=== PATIENT | male | born 1990 | race Two or more races ===

== ENCOUNTER 2023-12-31 21:59 | Inpatient (IN) | payer MEDICAID ==
[~2023-12-31] VITALS: Ht 175.3 cm; Wt 68.5 kg
[2023-12-31 23:01] LABS: BASOPHILS % (AUTO) 0.4 % (0.0-2.0); EOSINOPHILS % (AUTO) 1.3 % (1.0-6.0); HEMATOCRIT 37.4 % (41-53); HEMOGLOBIN 12.6 g/dL (13.5-17.5); LYMPHOCYTES # (AUTO) 1.5 K/uL (1.0-4.8); LYMPHOCYTES % (AUTO) 14.8 % (22.0-44.0); MEAN CORPUSCULAR HEMOGLOBIN 31.3 pg (26.0-34.0); MEAN CORPUSCULAR HGB CONC 33.7 G/dL (31.0-37.0); MEAN CORPUSCULAR VOLUME 93 fL (80-100); MONOCYTES # (AUTO) 0.9 K/uL (0.1-1.0); MONOCYTES % (AUTO) 8.4 % (2.0-9.0); NEUTROPHILS # (AUTO) 7.8 K/uL (1.8-7.7); NEUTROPHILS % (AUTO) 75.1 % (40.0-70.0); PLATELET COUNT (AUTO) 233 K/uL (150-450); RED BLOOD CELL COUNT(AUTO) 4.03 MIL/uL (4.50-5.90); RED CELL DISTRIBUTION WIDTH 12.6 % (11.5-14.5); WHITE BLOOD COUNT (AUTO) 10.4 K/uL (4.5-11.0)
[2023-12-31 23:09] LABS: ANION GAP 7 mmol/L (8-16); CALCIUM, TOTAL 8.6 mg/dL (8.8-10.5); CARBON DIOXIDE 28 mmol/L (22-29); CHLORIDE 106 mmol/L (98-107); CREATININE 0.73 mg/dL (0.60-1.30); GLOMERULAR FILTR. RATE CALC > 60 mL/min (>60); GLUCOSE,RANDOM 114 mg/dL (70-110); POTASSIUM 3.9 mmol/L (3.5-5.1); SODIUM SERUM 141 mmol/L (136-145); UREA NITROGEN, BLOOD 18 mg/dL (7-18)
[2023-12-31 23:11] LABS: ALCOHOL, BLOOD (SERUM) < 3 mg/dL (0-10)
[2023-12-31 23:15] LABS: ALANINE AMINOTRANSFERASE 53 U/L (12-78); ALBUMIN 3.3 g/dL (3.4-5.0); ALKALINE PHOSPHATASE 73 U/L (46-116); ASPARTATE AMINOTRANSFERASE 37 U/L (15-37); BILIRUBIN,TOTAL 1.5 mg/dL (0.1-1.0); TOTAL PROTEIN, SERUM 6.4 g/dL (6.4-8.2)
[2024-01-01 02:39] LABS: PH,URINE DRUG SCREEN 7.5 (5.0-8.0)
[2024-01-01 02:47] LABS: ALCOHOL, URINE DRUG SCREEN NEGATIVE (NEGATIVE); AMPHET/METH SCREEN,URINE POSITIVE (NEGATIVE); BARBITURATE SCREEN, URINE NEGATIVE (NEGATIVE); BENZODIAZEPINES SCREEN,URINE NEGATIVE (NEGATIVE); CANNABINOID SCREEN,URINE POSITIVE (NEGATIVE); COCAINE SCREEN,URINE NEGATIVE (NEGATIVE); METHADONE SCREEN, URINE NEGATIVE (NEGATIVE); OPIATE SCREEN,URINE NEGATIVE (NEGATIVE); PHENCYCLIDINE SCREEN,URINE NEGATIVE (NEGATIVE)
[2024-01-01 06:18] LABS: COVID AG,FIA SOURCE NASAL SWAB
[2024-01-01 06:41] LABS: SARS-COV2 (COVID) ANTIGEN,FIA Negative (Negative)
[2024-01-01] MEDS ORDERED: ZOLPIDEM TARTRATE 10 MG TABLET PO PRN (08:45)
[2024-01-01] MEDS ORDERED: HALOPERIDOL 5 MG TABLET PO PRN (08:45)
[2024-01-01] MEDS ORDERED: CloNIDine HCL 0.1 MG TABLET PO PRN (09:45)
[2024-01-01] MEDS ORDERED: DOCUSATE SODIUM 100 MG CAPSULE PO PRN (09:45)
[2024-01-01] MEDS ORDERED: NICOTINE 14 MG/24 HOUR PATCH TD PRN (09:45)
[2024-01-01] MEDS ORDERED: GuaiFENesin/D-METHORPHAN [SUGAR-FREE] 200-20MG/10 ML SYRUP UDCUP PO PRN (09:45)
[2024-01-01] MEDS ORDERED: ACETAMINOPHEN 325 MG TABLET PO PRN (09:45)
[2024-01-01] MEDS ORDERED: ONDANSETRON HCL 4 MG TABLET PO PRN (09:45)
[2024-01-01] MEDS ORDERED: IBUPROFEN 400 MG TABLET PO PRN (09:45)
[2024-01-01] MEDS ORDERED: MAG HYDROX/ALUMINUM HYD/SIMETH ES 30 ML SUSPENSION UDCUP PO PRN (09:45)
[2024-01-01] MEDS ORDERED: ALBUTEROL SULFATE HFA 90 MCG/PUFF 8 GM INHALER IH PRN (09:45)
[2024-01-01] MEDS ORDERED: MAGNESIUM HYDROXIDE SUSPENSION 30 ML UDCUP PO PRN (09:45)
[2024-01-01] MEDS ORDERED: LOPERAMIDE HCL 2 MG CAPSULE PO PRN (09:45)
[2024-01-01 10:15] VITALS: BP 139/85; PULSE 109; RESP 18; TEMP 98.4; O2SAT 98
[2024-01-01] MEDS ORDERED: PETROLATUM,WHITE 28 GM JELLY TP PRN (19:00)
[2024-01-01] MEDS: PETROLATUM,WHITE 28 GM JELLY TP PRN (20:01)
[2024-01-01 22:00] VITALS: BP 117/55; PULSE 104; RESP 18; TEMP 98; O2SAT 98
[2024-01-02] MEDS ORDERED: PETROLATUM,WHITE 28 GM JELLY TP PRN (06:15)
[2024-01-02] MEDS ORDERED: MAG HYDROX/ALUMINUM HYD/SIMETH ES 30 ML SUSPENSION UDCUP PO PRN (06:15)
[2024-01-02] MEDS ORDERED: MAGNESIUM HYDROXIDE SUSPENSION 30 ML UDCUP PO PRN (06:15)
[2024-01-02] MEDS ORDERED: ACETAMINOPHEN 325 MG TABLET PO PRN (06:15)
[2024-01-02] MEDS ORDERED: ALBUTEROL SULFATE HFA 90 MCG/PUFF 8 GM INHALER IH PRN (06:15)
[2024-01-02] MEDS ORDERED: GuaiFENesin/D-METHORPHAN [SUGAR-FREE] 200-20MG/10 ML SYRUP UDCUP PO PRN (06:15)
[2024-01-02] MEDS ORDERED: ONDANSETRON HCL 4 MG TABLET PO PRN (06:15)
[2024-01-02] MEDS ORDERED: LOPERAMIDE HCL 2 MG CAPSULE PO PRN (06:15)
[2024-01-02] MEDS ORDERED: DOCUSATE SODIUM 100 MG CAPSULE PO PRN (06:15)
[2024-01-02] MEDS ORDERED: NICOTINE 14 MG/24 HOUR PATCH TD PRN (06:15)
[2024-01-02] MEDS ORDERED: CloNIDine HCL 0.1 MG TABLET PO PRN (06:15)
[2024-01-02] MEDS ORDERED: IBUPROFEN 400 MG TABLET PO PRN (06:15)
[2024-01-02 09:00] VITALS: BP 120/76; PULSE 96; RESP 18; TEMP 97.3; O2SAT 98
[2024-01-02] MEDS: DIVALPROEX SODIUM 500 MG DR TABLET PO SCH (09:00)
[2024-01-02 12:18] LABS: CHOL/HDL RATIO 2.1 (4.2-7.3); FREE T4 (FREE THYROXINE) 1.06 ng/dL (0.76-1.46); T4 (THYROXINE) 7.9 mcg/dL (4.7-13.3); THYROID STIMULATING HORMONE 1.65 uIU/mL (0.36-3.74)
[2024-01-02 21:07] VITALS: BP 108/92; PULSE 105; TEMP 97.5; O2SAT 99
[2024-01-02] MEDS: OLANZapine 7.5 MG TABLET PO SCH (21:12)
[2024-01-02] MEDS: LITHIUM CARBONATE 600 MG CAPSULE PO SCH (21:12)
[2024-01-02] MEDS: TraZODone HCL 100 MG TABLET PO SCH (21:13)
[2024-01-03 08:42] VITALS: BP 102/59; PULSE 89; RESP 17; TEMP 97; O2SAT 97
[2024-01-03 21:32] VITALS: BP 102/59; PULSE 89; RESP 17; TEMP 97; O2SAT 97
[2024-01-04 04:06] LABS: TREPONEMA PALLIDUM AB -TPPA Reactive (Non Reactive)
[2024-01-04] MEDS: PNEUMOCOCCAL VACCINE POLYVALENT 0.5 ML SYRINGE [PPSV23] IM. ONE (08:52)
[2024-01-04 21:57] VITALS: BP 115/73; PULSE 109; RESP 18; TEMP 98.5; O2SAT 95
[2024-01-05 13:46] VITALS: RESP 18
[2024-01-05 21:00] VITALS: BP 114/67; PULSE 91; RESP 18; TEMP 97.2; O2SAT 98
[2024-01-06] MEDS: LORazepam 2 MG TABLET PO PRN (00:08)
[2024-01-06 08:28] VITALS: BP 100/66; PULSE 90; RESP 15; TEMP 98.9; O2SAT 100
[2024-01-06 20:50] VITALS: BP 119/81; PULSE 91; RESP 17; TEMP 98.3; O2SAT 100
[2024-01-07 08:34] LABS: LITHIUM < 0.20 mmol/L (0.60-1.20)
[2024-01-07 08:39] LABS: CHOL/HDL RATIO 2.8 (4.2-7.3); CHOLESTEROL 134 mg/dL (131-200); HDL CHOLESTEROL 48 mg/dL (40-60); LDL CHOL (CALC.) 81 mg/dL (0-130); THYROID STIMULATING HORMONE 2.42 uIU/mL (0.36-3.74); TRIGLYCERIDES 27 mg/dL (15-150); VALPROIC ACID 17 mcg/mL (50-100)
[2024-01-07 08:56] LABS: HEMOGLOBIN A1C 5.2 % (3.8-5.6)
[2024-01-07 08:57] VITALS: BP 98/63; PULSE 90; RESP 18; TEMP 97.5; O2SAT 97
[2024-01-07 20:40] VITALS: BP 124/69; PULSE 98; RESP 18; TEMP 97.9; O2SAT 96
[2024-01-08 09:17] VITALS: BP 100/64; PULSE 90; RESP 17; TEMP 97.7; O2SAT 96
[2024-01-08 20:23] VITALS: BP 108/70; PULSE 97; RESP 17; TEMP 98.4; O2SAT 99
[2024-01-09] MEDS: BICTEGRAV/EMTRICIT/TENOFOV ALA 50-200-25 MG TABLET PO SCH (21:31)
[2024-01-09 21:38] VITALS: BP 115/67; PULSE 97; RESP 17; TEMP 98.3; O2SAT 99
[2024-01-10 08:52] VITALS: BP 107/68; PULSE 97; RESP 16; TEMP 98.1; O2SAT 97
[2024-01-10] MEDS ORDERED: FLUTICASONE PROPIONATE 50 MCG/SPRAY 16 GM NASAL SPRAY NASAL PRN (20:00)
[2024-01-10 20:35] VITALS: BP 119/81; PULSE 92; RESP 17; TEMP 98.2; O2SAT 99
[2024-01-11 08:10] VITALS: RESP 16
[2024-01-11 20:46] VITALS: BP 112/69; PULSE 98; RESP 18; TEMP 98.1; O2SAT 99
[2024-01-12 14:27] VITALS: BP 114/71; PULSE 89; RESP 18; TEMP 97.3; O2SAT 98
[2024-01-12 17:49] LABS: APPEARANCE,URINE CLEAR (CLEAR); BILIRUBIN,URINE NEGATIVE (NEGATIVE); COLOR,URINE LIGHT YELLOW (YELLOW); GLUCOSE, URINE (UA) NEGATIVE (NEGATIVE); KETONES,URINE TRACE mg/dL (NEGATIVE); LEUKOCYTE ESTERASE ,URINE NEGATIVE (NEGATIVE); NITRATE,URINE NEGATIVE (NEGATIVE); OCCULT BLOOD,URINE NEGATIVE (NEGATIVE); PH,URINE 6.5 (5.0-8.0); PROTEIN,URINE NEGATIVE (NEGATIVE); SPECIFIC GRAVITIY, URINE 1.018 (1.003-1.030); UROBILINOGEN,URINE <=1.0 mg/dL (<=1.0)
[2024-01-12 20:52] VITALS: BP 111/73; PULSE 101; RESP 16; TEMP 98; O2SAT 97
[2024-01-13 10:52] VITALS: BP 112/67; PULSE 92; RESP 18; TEMP 97.9; O2SAT 97
[2024-01-13 20:52] VITALS: BP 113/68; PULSE 98; RESP 17; TEMP 98.3; O2SAT 98
[2024-01-14 08:30] VITALS: BP 96/61; PULSE 86; RESP 18; TEMP 97.7; O2SAT 96
[2024-01-14 20:43] VITALS: BP 106/70; PULSE 93; RESP 16; TEMP 98.5; O2SAT 96
[2024-01-15 09:12] VITALS: BP 91/60; PULSE 83; RESP 17; TEMP 97.7; O2SAT 97
[2024-01-15 20:27] VITALS: BP 109/76; PULSE 89; RESP 17; TEMP 98.3; O2SAT 98
[2024-01-16 09:04] VITALS: BP 122/72; PULSE 90; RESP 18; TEMP 97.8; O2SAT 98
[2024-01-16] MEDS ORDERED: TRAZ-257 PO ×2 (12:06→12:25)
[2024-01-16] MEDS ORDERED: OLAN7.5T22 PO ×2 (12:06→12:25)
[2024-01-16] MEDS ORDERED: LITH600C5 PO (12:07)
[2024-01-16] MEDS ORDERED: DIVA-112 PO ×2 (12:08→12:25)
[2024-01-16] MEDS ORDERED: LITH600C PO (12:25)
[2024-01-16] MEDS ORDERED: BICT1TAB PO (12:34)
== END 2024-01-16 12:53 | disposition home or self-care (01) | DRG 753 ==
LOC: EMS 21:59 → B2S 01-01 08:10
PROVIDERS: ADMIT Psychiatry & Neurology Child & Adolescent Psychiatry; ATTEND Psychiatry & Neurology Child & Adolescent Psychiatry
PROC: GZHZZZZ Group Psychotherapy (ICD-10-PCS; principal; 2024-01-03)
DX: F31.5 Bipolar disorder, current episode depressed, severe, with psychotic features (principal); D64.9 Anemia, unspecified; E80.6 Other disorders of bilirubin metabolism; F15.10 Other stimulant abuse, uncomplicated; R73.9 Hyperglycemia, unspecified; Z20.822 Contact with and (suspected) exposure to COVID-19
CPT/HCPCS: 80053; 80061; 80164; 80178; 80307; 81003; 83036; 84436; 84439; 84443; 85025; 86592; 86593; 86780; 99285; G0480; Q9967

== ENCOUNTER 2024-02-07 21:03 | Inpatient (IN) | payer MEDICAID ==
[~2024-02-07] VITALS: Ht 175.3 cm; Wt 65.8 kg
[~2024-02-07 21:03] MED LIST: BICT1TAB PO; DIVA-112 PO; LITH600C PO; LITH600C5 PO; OLAN7.5T22 PO; TRAZ-257 PO
[2024-02-07 21:35] LABS: GLUCOMETER DEV NAME(LOC) POC.BV; POC SARS-COV2 AG, FIA NEGATIVE (NEGATIVE)
[2024-02-07 22:42] VITALS: BP 110/64; PULSE 103; RESP 16; TEMP 97.5; O2SAT 99
[2024-02-08] MEDS ORDERED: ACETAMINOPHEN 325 MG TABLET PO PRN (07:00)
[2024-02-08] MEDS ORDERED: ALBUTEROL SULFATE HFA 90 MCG/PUFF 8 GM INHALER IH PRN (07:00)
[2024-02-08] MEDS ORDERED: DOCUSATE SODIUM 100 MG CAPSULE PO PRN (07:00)
[2024-02-08] MEDS ORDERED: LOPERAMIDE HCL 2 MG CAPSULE PO PRN (07:00)
[2024-02-08] MEDS ORDERED: ONDANSETRON HCL 4 MG TABLET PO PRN (07:00)
[2024-02-08] MEDS ORDERED: CloNIDine HCL 0.1 MG TABLET PO PRN (07:00)
[2024-02-08] MEDS ORDERED: IBUPROFEN 400 MG TABLET PO PRN (07:00)
[2024-02-08] MEDS ORDERED: MAG HYDROX/ALUMINUM HYD/SIMETH ES 30 ML SUSPENSION UDCUP PO PRN (07:00)
[2024-02-08] MEDS ORDERED: PETROLATUM,WHITE 28 GM JELLY TP PRN (07:00)
[2024-02-08] MEDS ORDERED: NICOTINE POLACRILEX 2 MG LOZENGE PO PRN (07:00)
[2024-02-08] MEDS ORDERED: MAGNESIUM HYDROXIDE SUSPENSION 30 ML UDCUP PO PRN (07:00)
[2024-02-08] MEDS ORDERED: GuaiFENesin/D-METHORPHAN [SUGAR-FREE] 200-20MG/10 ML SYRUP UDCUP PO PRN (07:00)
[2024-02-08 08:09] LABS: BASOPHILS % (AUTO) 1.2 % (0.0-2.0); EOSINOPHILS % (AUTO) 5.6 % (1.0-6.0); HEMATOCRIT 39.6 % (41-53); HEMOGLOBIN 13.6 g/dL (13.5-17.5); LYMPHOCYTES # (AUTO) 2.4 K/uL (1.0-4.8); LYMPHOCYTES % (AUTO) 45.1 % (22.0-44.0); MEAN CORPUSCULAR HEMOGLOBIN 31.7 pg (26.0-34.0); MEAN CORPUSCULAR HGB CONC 34.3 G/dL (31.0-37.0); MEAN CORPUSCULAR VOLUME 93 fL (80-100); MONOCYTES # (AUTO) 0.4 K/uL (0.1-1.0); MONOCYTES % (AUTO) 7.5 % (2.0-9.0); NEUTROPHILS # (AUTO) 2.1 K/uL (1.8-7.7); NEUTROPHILS % (AUTO) 40.6 % (40.0-70.0); PLATELET COUNT (AUTO) 234 K/uL (150-450); RED BLOOD CELL COUNT(AUTO) 4.28 MIL/uL (4.50-5.90); RED CELL DISTRIBUTION WIDTH 13.2 % (11.5-14.5); WHITE BLOOD COUNT (AUTO) 5.3 K/uL (4.5-11.0)
[2024-02-08] MEDS: BICTEGRAV/EMTRICIT/TENOFOV ALA 50-200-25 MG TABLET PO SCH (08:11)
[2024-02-08 08:45] LABS: ALANINE AMINOTRANSFERASE 36 U/L (12-78); ALBUMIN 2.9 g/dL (3.4-5.0); ALKALINE PHOSPHATASE 54 U/L (46-116); ANION GAP 6 mmol/L (8-16); ASPARTATE AMINOTRANSFERASE 40 U/L (15-37); BILIRUBIN,TOTAL 1.2 mg/dL (0.1-1.0); CALCIUM, TOTAL 8.4 mg/dL (8.8-10.5); CARBON DIOXIDE 30 mmol/L (22-29); CHLORIDE 103 mmol/L (98-107); CHOLESTEROL 105 mg/dL (131-200); CREATININE 0.73 mg/dL (0.60-1.30); FREE T4 (FREE THYROXINE) 1.16 ng/dL (0.76-1.46); GLOMERULAR FILTR. RATE CALC > 60 mL/min (>60); GLUCOSE,RANDOM 112 mg/dL (70-110); HDL CHOLESTEROL 52 mg/dL (40-60); LDL CHOL (CALC.) 44 mg/dL (0-130); POTASSIUM 3.6 mmol/L (3.5-5.1); SODIUM SERUM 139 mmol/L (136-145); T4 (THYROXINE) 7.4 mcg/dL (4.7-13.3); TOTAL PROTEIN, SERUM 5.7 g/dL (6.4-8.2); TRIGLYCERIDES 44 mg/dL (15-150); UREA NITROGEN, BLOOD 21 mg/dL (7-18)
[2024-02-08] MEDS ORDERED: LORazepam 2 MG/ML VIAL ONE (09:00)
[2024-02-08] MEDS ORDERED: DiphenhydrAMINE HCL 50 MG/ML VIAL ONE (09:00)
[2024-02-08] MEDS ORDERED: HALOPERIDOL LACTATE 5 MG/ML VIAL ONE (09:00)
[2024-02-08] MEDS: LORazepam 2 MG/ML VIAL IM ONE (09:08)
[2024-02-08] MEDS: DiphenhydrAMINE HCL 50 MG/ML VIAL IM ONE (09:08)
[2024-02-08] MEDS: HALOPERIDOL LACTATE 5 MG/ML VIAL IM ONE (09:09)
[2024-02-08 10:17] VITALS: BP 117/75; PULSE 90; RESP 18; TEMP 97.3
[2024-02-08] MEDS: DIVALPROEX SODIUM 500 MG DR TABLET PO SCH (17:04)
[2024-02-08] MEDS: LORazepam 2 MG TABLET PO PRN (17:04)
[2024-02-08] MEDS: HALOPERIDOL 5 MG TABLET PO PRN (17:04)
[2024-02-08] MEDS: ZOLPIDEM TARTRATE 10 MG TABLET PO PRN (20:41)
[2024-02-08] MEDS: OLANZapine 7.5 MG TABLET PO SCH (20:42)
[2024-02-08] MEDS: TraZODone HCL 100 MG TABLET PO SCH (20:42)
[2024-02-08] MEDS: LITHIUM CARBONATE 600 MG CAPSULE PO SCH (20:42)
[2024-02-08] MEDS ORDERED: OLANZapine 7.5 MG TABLET PO SCH (21:00)
[2024-02-08] MEDS ORDERED: LITHIUM CARBONATE 600 MG CAPSULE PO SCH (21:00)
[2024-02-08 23:16] VITALS: RESP 18
[2024-02-09 09:39] VITALS: PULSE 80; RESP 18; TEMP 97.3; O2SAT 100
[2024-02-09 10:14] VITALS: BP 108/61; PULSE 92; RESP 17
[2024-02-09] MEDS: ETHYL ALCOHOL 62% ANTISEPTIC NASAL SANITIZER 0.6 ML AMPUL NASAL SCH (10:31)
[2024-02-09] MEDS: CHLORHEXIDINE GLUCONATE 2% TOWELETTE [2'S/6'S] TP SCH (21:23)
[2024-02-09 22:10] VITALS: RESP 16
[2024-02-10 11:33] VITALS: BP 99/62; PULSE 108; RESP 15; TEMP 98.2; O2SAT 97
[2024-02-10 20:51] VITALS: BP 114/67; PULSE 97; RESP 17; TEMP 98.3; O2SAT 98
[2024-02-11 08:54] VITALS: BP 120/64; PULSE 96; RESP 18; TEMP 97.7; O2SAT 97
[2024-02-11 09:13] LABS: LITHIUM 0.38 mmol/L (0.60-1.20)
[2024-02-12 01:08] VITALS: BP 104/67; PULSE 98; RESP 18; TEMP 97.3; O2SAT 95
[2024-02-12 08:59] VITALS: BP 101/62; PULSE 76; RESP 17; TEMP 97.8; O2SAT 100
== END 2024-02-12 16:00 | disposition left against medical advice (07) | DRG 750 ==
LOC: B3A 21:05
PROVIDERS: ADMIT Psychiatry & Neurology Child & Adolescent Psychiatry; ATTEND Psychiatry & Neurology Child & Adolescent Psychiatry
PROC: GZ52ZZZ Individual Psychotherapy, Cognitive (ICD-10-PCS; principal; 2024-02-08)
DX: F20.9 Schizophrenia, unspecified (principal); E80.6 Other disorders of bilirubin metabolism; Z91.199 Patient's noncompliance with other medical treatment and regimen due to unspecified reason; R74.01 Elevation of levels of liver transaminase levels; R73.9 Hyperglycemia, unspecified; Z53.29 Procedure and treatment not carried out because of patient's decision for other reasons; Z20.822 Contact with and (suspected) exposure to COVID-19; Z79.899 Other long term (current) drug therapy
CPT/HCPCS: 80053; 80061; 80164; 80178; 84436; 84439; 84443; 85025; 86592; 87081; J1200; J1630; J2060